=== PATIENT | male | born 1990 ===

== ENCOUNTER 2016-10-01 05:31 | Day surgery (SDC) | payer MEDICARE, OTHER ==
[~2016-10-01] VITALS: Ht 152.4 cm; Wt 83.9 kg
[2016-10-01] VITALS (11 sets, daily range): BP systolic 99–129; BP diastolic 54–78
[2016-10-01] MEDS ORDERED: Glycopyrrolate 0.2mg/ml 1ml Vial ONE (05:32)
[2016-10-01] MEDS ORDERED: Midazolam 2mg/2ml Inj ONE ×2 (05:32)
[2016-10-01] MEDS ORDERED: fentaNYL 100 mcg/2 mL IV ONE (05:32)
[2016-10-01] MEDS ORDERED: Ketorolac 30mg Inj ONE (05:32)
[2016-10-01] MEDS ORDERED: Sterile Water Irrig 1000ml IRRIG ONE (05:32)
[2016-10-01] MEDS ORDERED: LR 1000ml ONE (05:32)
[2016-10-01] MEDS ORDERED: Succinylcholine 20mg/ml 10ml vial ONE (05:32)
[2016-10-01] MEDS ORDERED: Morphine Sulfate 10mg/ml Inj ONE (05:32)
[2016-10-01] MEDS ORDERED: Propofol 10mg/ml 20ml IV ONE (05:32)
[2016-10-01] MEDS ORDERED: NS Irrig 1000ml ONE (05:32)
[2016-10-01] MEDS ORDERED: Dexamethasone 4mg/ml vial ONE (05:32)
[2016-10-01] MEDS ORDERED: Neostigmine 1mg/ml 10ml Inj ONE (05:32)
[2016-10-01] MEDS ORDERED: ceFAZolin 1gm in D5W 55ml IVP ONE (06:00)
[2016-10-01] MEDS ORDERED: MELOXICAM15 MG PO (06:23)
[2016-10-01] MEDS ORDERED: GABAPENTIN300 MG ORAL (06:23)
[2016-10-01] MEDS ORDERED: LITHIUM CARBON300 MG ORAL (06:23)
[2016-10-01] MEDS ORDERED: CYCLOBENZAPRINE10 MG ORAL (06:23)
[2016-10-01] MEDS ORDERED: ALPRAZOLAM0.25 MG ORAL (06:23)
--- NOTE | 2016-10-01 07:06 | Pre-Procedure Note/Attestation ---
Pre-Procedure Note/Attestation Complete Prior to Procedure Planned Procedure: bilateral Procedure Narrative: mastectomy with nipple graft Indications for Procedure Pre-Operative Diagnosis: gender dysphoria Attestation I attest that I discussed the nature of the procedure; its benefits; risks and complications; and alternatives (and the risks and benefits of such alternatives ), prior to the procedure, with the patient (or the patient's legal customer service representative teller). I attest that, if there was a reasonable possibility of needing a blood transfusion, the patient (or the patient's legal customer service representative teller) was given the [facility] standardized written summary, pursuant to the [place] Carol[employer] Blood Safety Act ([place] Health and Safety Code # 1645, as amended). I attest that I re-evaluated the patient just prior to the surgery and that there has been no change in the patient's H&P, except as documented below: DEBBIE CASTELAN M.D. Oct 01, 2016 07:06
[2016-10-01] MEDS ORDERED: Bacitracin Oint 15gm Tube TOPIC ONE (07:09)
[2016-10-01] MEDS ORDERED: Bupivacaine w/Epi 0.5% 30ml Vial INJ ONE (07:10)
[2016-10-01] MEDS ORDERED: Muri-Lube ONE ×2 (07:10→08:09)
[2016-10-01] MEDS ORDERED: Bupivacaine 0.25% Inj 30ml INJ ONE ×2 (07:10→07:22)
[2016-10-01] MEDS ORDERED: Lidocaine 1% Plain 30 ml INJ ONE (07:10)
[2016-10-01] MEDS ORDERED: Lidocaine 1% 10mg/ml/Epi 0.005mg/ml 30ml vial INJ ONE (07:22)
--- NOTE | 2016-10-01 08:10 | Anethesia Preoperative Eval ---
Anesthesia Pre-op PMH/ROS General Date of Evaluation: Oct 01, 2016 Time of Evaluation: 07:10 Anesthesiologist: Manuel ASA Score: ASA 2 Mallampati Score Class I : Soft palate, uvula, fauces, pillars visible Class II: Soft palate, uvula, fauces visible Class III: Soft palate, base of uvula visible Class IV: Only hard plate visible Mallampati Classification: Class II Surgeon: Tristan Diagnosis: Gender dissatisfaction Surgical Procedure: Bilateral mastectomy Anesthesia History: none Family History: no anesthesia problems Allergies: Coded Allergies: DULOXETINE (Verified Allergy, Severe, Hives, 10/01/16) Medications: see eMAR Past Medical History Cardiovascular: Denies: CAD, HTN, CO, arrhythmia, other, valve dz Pulmonary: Reports: asthma - mild, Denies: COPD, KANE, other Gastrointestinal/Genitourinary: Reports: GERD, Denies: CRI, ESRD, other Neurologic/Psychiatric: Reports: depression/anxiety, Denies: CVA, TIA, dementia, other Endocrine: Denies: DM, hypothyroidism, other, steroids HEENT: Denies: KALISPEL (L), KALISPEL (R), cataract (L), cataract (R), glaucoma, other Hematology/Immune: Denies: DVT, anemia, bleeding disorder, other Musculoskeletal/Integumentary: Denies: DDD, DJD, OA, RA, edema, other Other: obesity PMH Narrative: as above PSxH Narrative: Cholecystectomy, appy Anesthesia Pre-op Phys. Exam Physician Exam Last Vital Signs Date Time Temp Pulse Resp B/P Pulse Ox O2 Delivery O2 Flow Rate FiO2 10/01/16 06:05 97.1 82 18 117/78 96 Room Air Constitutional: NAD Neurologic: CN 2-12 intact Cardiovascular: RRR, no M/R/G Respiratory: CTA Gastrointestinal: S/NT/ND Airway Exam Mallampati Score: Class II MO: full Neck: flexible ROM: full Teeth: intact Dentures: no lower, no upper Anesthesia Pre-op A/P Labs see chart Urine Test Test 10/01/16 05:50 Urine HCG, Qualitative Negative Risk Assessment & Plan Assessment: ASA 2 Plan: GA with ETT PONV prevention Status Change Before Surgery: No Pre-Antibiotics Drug: Ancef 2gr. Given Within 1 Hr of Incision: Yes Time Given: 07:54 AMIRA GRIDER M.D. Oct 01, 2016 08:10
[2016-10-01] MEDS ORDERED: LR 1000ml 1,000 ML IVLG SCH (08:13)
[2016-10-01] MEDS ORDERED: DiphenhydrAMINE 50mg/ml Inj IVP PRN (08:15)
[2016-10-01] MEDS ORDERED: fentaNYL 100 mcg/2 mL IV PRN (08:15)
[2016-10-01] MEDS ORDERED: Hydromorphone 0.5mg/0.5ml inj IVP PRN (08:15)
[2016-10-01] MEDS ORDERED: Metoclopramide 10mg/2ml Inj IVP PRN (08:15)
[2016-10-01] MEDS ORDERED: Midazolam 2mg/2ml Inj IVP PRN (08:15)
[2016-10-01] MEDS ORDERED: Ketorolac 30mg Inj IV PRN (08:15)
[2016-10-01] MEDS ORDERED: Meperidine 25mg/0.5ml Inj (FOR RIGORS ONLY) IV PRN (08:15)
[2016-10-01] MEDS ORDERED: D5 1/2NS 1,000 ML IV SCH (11:45)
[2016-10-01] MEDS ORDERED: Norco 5mg/325mg tab ORAL PRN (11:45)
[2016-10-01] MEDS ORDERED: HYDROmorphone 1mg/ml Carpuject SUBQ PRN (11:45)
[2016-10-01] MEDS ORDERED: Tylenol #3 tab (300mg/30mg) ORAL PRN (11:45)
--- NOTE | 2016-10-01 13:08 | Immediate Post-Op Evaluation ---
Immediate Post-Op Evalulation Immediate Post-Op Evalulation Procedure: Bilateral mastectomy with nipple reconstraction Date of Evaluation: Oct 01, 2016 Time of Evaluation: 11:42 IV Fluids: 1500 Blood Products: none Estimated Blood Loss: 100 Urinary Output: 800 Blood Pressure Systolic: 121 Blood Pressure Diastolic: 64 Pulse Rate: 86 Respiratory Rate: 20 O2 Sat by Pulse Oximetry: 99 Temperature (Fahrenheit): 97.6 Pain Score (1-10): 2 Nausea: No Vomiting: No Complications none Patient Status: reacts, patent, extubated, none Hydration Status: adequate AMIRA GRIDER M.D. Oct 01, 2016 13:08
--- NOTE | 2016-10-01 13:10 | 48 Hour Post Anesthesia Eval ---
Post Anesthesia Evaluation Procedure: Bilateral mastectomy with nipple reconstraction Date of Evaluation: Oct 01, 2016 Time of Evaluation: 13:09 Blood Pressure Systolic: 112 0: 56 Pulse Rate: 78 Respiratory Rate: 20 Temperature (Fahrenheit): 97.8 O2 Sat by Pulse Oximetry: 98 Airway: patent Nausea: No Vomiting: No Pain Intensity: 2 Hydration Status: adequate Cardiopulmonary Status: stable Mental Status/LOC: patient returned to baseline Follow-up Care/Observations: n/a Post-Anesthesia Complications: none Follow-up care needed: ready to discharge AMIRA GRIDER M.D. Oct 01, 2016 13:10
--- NOTE | 2016-10-01 15:28 | Operative Note - PDOC ---
Operative Note Operative Note Date of Operation/Procedure: Oct 01, 2016 Pre-op Diagnosis: gender dysphoria Procedure: bilateral mastectomy Post-op Diagnosis: same Surgeon: Tristan Anesthesia: general Specimen: yes Complications: none Condition: stable Estimated Blood Loss: volume - 50 cc Drains: DRU - x2 Implant(s) used?: No Indications for Procedure gender dysphoria DEBBIE CASTELAN M.D. Oct 01, 2016 15:28
--- NOTE | 2016-10-01 19:15 | Operative Note - Dictated ---
DATE OF OPERATION: 10/01/2016 PREOPERATIVE DIAGNOSIS: Gender identity disorder. POSTOPERATIVE DIAGNOSIS: Gender identity disorder. PROCEDURES: 1. Bilateral subcutaneous mastectomy. 2. Full-thickness skin graft reconstruction of nipple areola complex right chest (2.5 x 2.5 cm). 3. Full-thickness skin graft reconstruction of nipple areola complex left chest (2.5 x 2.5 cm). 4. Bilateral fasciocutaneous flap reconstruction of inferior mastectomy defect. SURGEON: Kevon Hudson M.D. ANESTHESIA: General. ESTIMATED BLOOD LOSS: 50 mL. SPECIMENS: 1. Right breast. 2. Left breast. DRAINS: 15-Palestinian Yovani x2. COMPLICATIONS: None. CONDITION TO RECOVERY ROOM: Stable. INDICATION FOR PROCEDURE: This is a very pleasant 26-year-old trans male, who has been undergoing the process of transition. For over 1 year, he has been on hormone therapy and has been under care of a mental health professional, who feels that top surgery would alleviate his gender dysphoria. He meets all the criteria as set forth by the [facility] Standards of Care and is an appropriate candidate for the procedure. I have discussed the risks, benefits, and alternatives to the procedure with him including, but not limited to bleeding, infection, scarring, nerve injury, asymmetry, contour deformity, hematoma, seroma, loss of nipple sensation, loss of nipple graft, and need for additional surgery including revisions. I discussed the orientation of the incisions and the unpredictable nature of scarring. No guarantees were made regarding the outcome. All of his questions have been answered to the best of my ability. He verbalized understanding with everything that we discussed and wishes to proceed with surgery. DESCRIPTION OF PROCEDURE: The patient was identified in the preoperative holding area and marked in the standing position. He was then brought to the operating room where he was placed in the supine position on the operating room table with his arms extended on arm boards. All bony prominences were adequately padded. Sequential compression devices were placed and intravenous antibiotics were administered. After induction of anesthesia, the patient's chest was prepped and draped in sterile fashion. Starting on the left chest first, the nipple-areola complex was placed on stretch and a nome measuring 2.5 cm in diameter, was drawn centered around the nipple. Next, a full-thickness nipple-areola graft was harvested by incising the nome using a #15 blade scalpel. The graft was harvested, subsequently defatted, placed on the back table, and wrapped in moist saline. Next, I made the inframammary fold incision using a #10 blade scalpel. Dissection proceeded down to the subcutaneous tissues and breast parenchyma until the pectoralis fascia was reached. Next, I then proceeded to make the superior skin incision on the chest using a 10 blade scalpel. Dissection proceeded down to the level of Edilberto's fascia. Skin hooks were used to retract the skin and a plane of dissection was created between the subcutaneous tissue and breast parenchyma in a superior direction. After this was complete, the breast tissue was then elevated off of the pectoralis major fascia proceeding from a medial to a lateral direction. The specimen was passed off the table. Hemostasis was achieved and the wound was irrigated with saline. There was a rather large, approximately 5 cm, defect on each side which could not be closed despite undermining of the adjacent tissues. Next, the skin incision was extended laterally to parallel the lateral border of the pectoralis major muscle. Skin hooks were used to retract the inferior skin. Dissection proceeded in the subfascial plane taking care to preserve the perforating vessels so as to maintain vascularity to the flap after the dissection was complete. The tissues were then advanced in a superior direction up until the inferior border of the pectoralis muscle, which allowed for closure of the inferior mastectomy defect. The flap was then secured along the inferior and inferolateral border of the pectoralis major muscle using 0 Vicryl suture. A #15-Palestinian Yovani drain was then placed within the wound and brought out through a separate stab incision and secured using 2-0 silk suture. The skin was then temporarily closed with stepan. I shifted my attention to the contralateral side where the identical procedure was performed. The patient was then sat up on the operating room table. It appeared that he had a nice contour to his chest and very reasonable symmetry between the 2 sides. A marking pen was used to outline the excessiive tissue resection laterally so as to resolve the dog ear that was present on each side. The proposed location of the nipple-areola complex was also marked out on each side and it appeared that there was reasonable symmetry between the proposed markings and this was confirmed with measurements. He was then placed back in the supine position. The skin stepan were removed, 0 Vicryl sutures were used to reapproximate Edilberto's fascia followed by 3-0 PDS suture for the subdermal layer and then a running 3-0 Monocryl suture for the skin. On each side, the karan corresponding to the proposed nipple-areola complex was incised using a #15 blade scalpel. The skin was de-epithelialized. Each of the nipple-areola full-thickness graft was then placed and inset into the de-epithelialized area using a running 5-0 fast absorbing suture. Next, several 2-0 silk sutures ties were placed around the periphery of the nipple-areola complex. A total of 38 mL consisting of equal parts 1% lidocaine with epinephrine and 0.25% plain Marcaine was then injected into the incisions. A skin graft bolster was then fashioned and secured into place over each nipple-areola graft using the silk ties. Sterile dressings were then applied. The patient tolerated the procedure well and was sent to the recovery room in stable condition. All instruments, sharp and sponge counts were correct at the conclusion of the case. Kevon Hudson M.D. DR: DELORES JOB#: [id number] CC: TERRI
== END 2016-10-01 13:20 | disposition home or self-care (01) ==
LOC: SUR 05:31
DX: F64.0 Transsexualism (principal); F32.9 Major depressive disorder, single episode, unspecified; F41.9 Anxiety disorder, unspecified; M79.7 Fibromyalgia; E66.9 Obesity, unspecified; Z68.1 Body mass index [BMI] 19.9 or less, adult; J45.909 Unspecified asthma, uncomplicated; K21.9 Gastro-esophageal reflux disease without esophagitis; K58.9 Irritable bowel syndrome, unspecified; Z88.8 Allergy status to other drugs, medicaments and biological substances; Z90.49 Acquired absence of other specified parts of digestive tract
CPT/HCPCS: 15734; 19304; 19350; 81025; J0330; J0690; J1100; J1885; J2250; J2270; J2405; J2704; J2710; J3010; J3490; J7120; 94003; 94150